=== PATIENT | female | born 2000 | race Caucasian/White ===

== ENCOUNTER 2022-04-08 08:05 | Emergency (ER) | payer OTHER, SELFPAY ==
[2022-04-08 08:20] VITALS: BP 127/91; PULSE 93; RESP 16; TEMP 36.6; O2SAT 99
--- NOTE | 2022-04-08 08:20 | ED.EAR ---
HPI - Ear Problem General Chief complaint: Upper Respiratory Infection Stated complaint: Sore Throat,Ear Pain Time Seen by Provider: 04/08/22 08:20 Source: patient Mode of arrival: ambulatory Limitations: no limitations History of Present Illness HPI Narrative: 21-year-old female presents with complaint of postnasal drainage, mild sore throat, ears popping and clicking for 2 to 3 days. Afebrile. States I have a cough but not really . Reports that ears are not really painful. States she thought maybe symptoms were seasonal allergies but was not really sure. Is not taking any hqhj-wov-bdifgew medications to treat symptoms. All systems reviewed and negative except as noted above. Related Data Home Medications Medication Instructions Recorded Confirmed No Home Medications 04/08/22 04/08/22 Allergies Allergy/AdvReac Type Severity Reaction Status Date / Time No Known Allergies Allergy Verified 04/08/22 08:21 Review of Systems Review of Systems: CONSTITUTIONAL: Denies fever, chills, or sweats. EYES: Denies visual changes, redness, or discharge. ENT: Denies rhinorrhea, congestion. Reports postnasal drainage and sore throat, and ears clicking popping. CARDIOVASCULAR: Denies chest pain, palpitations, or edema. RESPIRATORY: Reports cough. Denies dyspnea. GASTROINTESTINAL: Denies abdominal pain, nausea, vomiting, or diarrhea. GENITOURINARY: Denies dysuria or hematuria. SKIN: Denies rash or itching. MUSCULOSKELETAL: Denies back pain, joint pain, or myalgia. NEUROLOGIC: Denies headache, numbness, or weakness. PSYCHIATRIC: Denies anxiety or depression. All other systems reviewed are negative, except as documented in HPI. PMFSH Comments At time of signature, agree with nursing past medical, surgical, social and family history. There is no relevant family history pertinent to the presenting complaint. Exam Narrative: GENERAL: This is a well-nourished, well-developed patient, in no apparent distress. HEAD: normocephalic, atraumatic. EYES: PERRL. Sclera clear/white. Vision is grossly intact. EARS: External ears normal, auditory canals clear and without drainage. Small amount of clear fluid to both TMs with some air bubbles. There is no erythema or injection. No perforation. NOSE: External nose normal with no obvious nasal discharge, nares without redness, no rhinorrhea. No sinus tenderness. THROAT: Mucous membranes moist, posterior pharynx clear. Clear postnasal drainage noted. NECK: Neck supple, non-tender without lymphadenopathy, masses or thyromegaly. CARDIOVASCULAR: Regular rate and rhythm without murmurs, gallops, or rubs. RESPIRATORY: Clear to auscultation. Breath sounds equal bilaterally. No wheezes, rales, or rhonchi. SKIN: warm, Dry, intact with no suspicious lesions or rash, good texture and turgor. NEURO: awake, alert, and oriented to person, place and time. There were no obvious focal neurologic abnormalities. EXTREMITIES: Normal range of motion to all extremities. Course Course Level of Care: Express Care Visit Vital Signs Vital signs: Reviewed Medical Decision Making MDM Narrative Medical decision making narrative: Patient is aware of diagnosis, understands and agrees to treatment plan. Anticipatory guidance given. Patient agrees to follow-up as directed and is aware of reasons to seek care at the emergency department. Portions of this record may have been created with voice recognition software Discharge Plan Discharge Clinical Impression: Seasonal allergies Patient Disposition: Home, Self-Care Condition: Stable Instructions: Allergic Rhinitis (ED), Allergies (ED) Additional Instructions: Take an [id number] allergy medication such as Zyrtec or Claritin daily. Start a steroid nasal spray such as Flonase or Nasacort and use as directed on packaging. Drink plenty of water. Follow-up with your primary care physician if symptoms not improving. Prescriptions: No Action No H
== END 2022-04-08 08:36 | disposition home or self-care (01) ==
PROVIDERS: Emergency Provider Nurse Practitioner Family
DX: J30.2 Other seasonal allergic rhinitis (principal)
CPT/HCPCS: 99211; G0463